=== PATIENT | male | born 1950 | race Caucasian/White ===

== ENCOUNTER 2021-11-05 09:01 | Outpatient (CLI) | payer MEDICARE, SELFPAY ==
--- NOTE | ~2021-11-05 | CT_ITS ---
EXAMINATION: CT abdomen pelvis w con DATE: 11/05/2021 09:39 INDICATION: Prostate neoplasm TECHNIQUE: Computed tomography (CT) of the abdomen and pelvis was performed with 100 cc Omnipaque 350 intravenous contrast. Automated exposure control and iterative reconstruction technique were employe d. Exam dose: 1155.26 mGy-cm total exam DLP. COMPARISON: None. FINDINGS: There is no infiltrate or consolidation at the lung bases. Coronary artery calcification. No pericardial or pleural effusion. The liver, gallbladder, bile ducts, pancreas and pancreatic duct are unremarkable. There are calcifie d splenic granulomas. Normal splenic size. Normal morphology of the adrenal glands. No renal mass lesion or urinary tract calculus or hydroureteronephrosis. There is prostate enlargement. There is moderate diffuse thickening of the urinary bladder wall. Normal caliber of the abdominal aorta. No intraperitoneal or retroperitoneal or pelvic mass lesion or adenopathy or ascites. Small sliding hiatal hernia. Normal appendix. Diverticulosis of the sigmoid colon; no CT evidence of diverticulitis. No bowel obstruction, bowel wall thickening, pneumatosis or intraperitoneal free air. Small fat-containing umbilical hernia. There are bilateral small fat-containing inguinal hernias. No suspicious osteolytic or osteoblastic lesions are noted. There is degenerative disc disease at L5- S1. IMPRESSION: Prostate enlargement; no osteoblastic metastatic lesions are noted Small sliding hiatal hernia Diverticulosis of the sigmoid colon; no CT evidence of diverticulitis Reviewed, dictated and finalized at [facility]. Reviewed, dictated and finalized at [facility]. D [employer]ACHINE
--- NOTE | ~2021-11-05 | NM_ITS ---
EXAMINATION: NM bone scan whole body DATE: 11/05/2021 12:09 INDICATION: Malignant neoplasm of prostate. TECHNIQUE: 23.6 mCi Tc-99m HDP was administered intravenously. Delayed whole-body scintigrams were o btained. 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 IMPRESSION: 1. No evidence of metastatic disease. Reviewed, dictated and finalized at [facility]. [employer]
[2021-11-05 09:34] LABS: Estimated Glomerular Filt Rate > 60
== END 2021-11-05 09:02 | disposition home or self-care (01) ==
LOC: ANHIMG 09:07
PROVIDERS: Visit Provider Urology
DX: C61 Malignant neoplasm of prostate (principal); K44.9 Diaphragmatic hernia without obstruction or gangrene; K57.30 Diverticulosis of large intestine without perforation or abscess without bleeding; K40.90 Unilateral inguinal hernia, without obstruction or gangrene, not specified as recurrent; M47.817 Spondylosis without myelopathy or radiculopathy, lumbosacral region
CPT/HCPCS: 74177; 78306; A9561; Q9967